=== PATIENT | male | born 1985 | race Caucasian/White ===

== ENCOUNTER 2022-06-02 07:26 | Outpatient (CLI) | payer OTHER, SELFPAY ==
[2022-06-02 07:45] VITALS: BP 122/73; PULSE 96; RESP 16; TEMP 36.6; O2SAT 95
[2022-06-02 07:46] VITALS: BMI 35.6
[2022-06-02] MEDS: SODIUM CHLORIDE 0.9 % (FLUSH) 10 ML SYRINGE IVF (08:00)
[2022-06-02] MEDS: LACTATED RINGERS 1000 ML 1,000 ML 100 ML IV (08:00)
[2022-06-02] MEDS: OXYMETAZOLINE 0.05% NASAL SPRAY 2 SPRAY NOSTRIL-B (08:00)
--- NOTE | 2022-06-02 08:43 | SUR.PREOP ---
RECHECKED PATIENTS BLOOD GLUCOSE AT 0840, 285. DR. DUONG CANCELLED CASE.
--- NOTE | 2022-06-02 08:45 | SUR.PREOP ---
PATIENT LEFT SDS AT 0843.
--- NOTE | 2022-06-02 09:01 | W.PM.ENTPROC ---
Procedure Note Date of procedure: 06/02/22 Procedure: Surgery cancel due to elevated blood sugar of 300 Surgeon: Ariel Cates MD
== END 2022-06-02 08:43 | disposition home or self-care (01) ==
PROVIDERS: Visit Provider Otolaryngology
PROC: (CPT 30520; principal; 2022-06-02 09:00)
DX: E11.65 Type 2 diabetes mellitus with hyperglycemia (principal); Z53.8 Procedure and treatment not carried out for other reasons
CPT/HCPCS: J7120